=== PATIENT | male | born 1950 | race Caucasian/White ===

== ENCOUNTER 2025-01-20 05:07 | Emergency (ER) | payer OTHER, MEDICAID ==
[~2025-01-20] VITALS: Ht 167.6 cm; Wt 73.0 kg
[2025-01-20 05:11] VITALS: O2SAT 99
[2025-01-20] MEDS ORDERED: SULF1TAB48 MT (05:37)
[2025-01-20] MEDS ORDERED: MUPI1OIN4 TP (05:37)
[2025-01-20] MEDS ORDERED: ACET-2708 MT (05:37)
[2025-01-20 05:57] VITALS: BP 128/75; PULSE 75; RESP 16; TEMP 36.8; O2SAT 98
== END 2025-01-20 05:59 | disposition home or self-care (01) ==
LOC: ER 05:07
DX: L73.9 Follicular disorder, unspecified (principal); E11.9 Type 2 diabetes mellitus without complications; Z79.899 Other long term (current) drug therapy
CPT/HCPCS: 99283

== ENCOUNTER 2025-02-25 17:18 | Emergency (ER) | payer OTHER, MEDICAID ==
[~2025-02-25] VITALS: Ht 167.6 cm; Wt 86.0 kg
[~2025-02-25 17:18] MED LIST: ACET-2708 MT; MUPI1OIN4 TP; SULF1TAB48 MT
[2025-02-25 17:20] VITALS: O2SAT 99
[2025-02-25] MEDS ORDERED: IBUP-2030 MT (21:24)
[2025-02-25] MEDS: ACETAMINOPHEN 500MG TABLET PO ONE (21:37)
[2025-02-25] MEDS: KETOROLAC 30MG/ML VIAL IM ONE (21:37)
[2025-02-25 21:58] VITALS: BP 119/60; PULSE 64; RESP 18; TEMP 36.9; O2SAT 99
== END 2025-02-25 22:17 | disposition home or self-care (01) ==
LOC: ER 17:18
DX: S82.892A Other fracture of left lower leg, initial encounter for closed fracture (principal); E11.9 Type 2 diabetes mellitus without complications; I10 Essential (primary) hypertension; W18.30XA Fall on same level, unspecified, initial encounter; Y93.89 Activity, other specified; Y92.89 Other specified places as the place of occurrence of the external cause; Y99.8 Other external cause status
CPT/HCPCS: 99283; 29515; 73610; 96372; J1885